=== PATIENT | male | born 1990 | race Caucasian/White ===

== ENCOUNTER → 2019-02-08 | Outpatient (CLI) | payer BC ==
--- NOTE | 2019-02-26 00:53 | ECWPNPC ---
PATIENT NAME: MAHSA MOSLEY : 1990 GENDER: MALE VISIT DATE: 02/08/2019 DISCHARGE DATE: 02/08/19 1639 VISIT LOCKED DATE TIME: PHYSICIAN: LLUVIA SKINNER MD RESOURCE: LLUVIA SKINNER MD REASON FOR APPOINTMENT 1. CHRONIC NECK PAIN HISTORY OF PRESENT ILLNESS PAIN SCREENING: PATIENT HAS A COMPLAINT OF ACUTE OR CHRONIC PAIN :YES 28 YEAR OLD MALE PATIENT WITH A HISTORY OF CHRONIC NECK PAIN. THE PATIENT DESCRIBES THE PAIN STABBING AND CONTINUOUS WITH A PAIN SCORE OF 7-10/10 DEPENDING ON PHYSICAL ACTIVITY. THE PATIENT SAYS HIS PAIN IS LOCATED IN HIS NECK AREA AND GOES INTO HIS LEFT SHOULDER AND SHOOTS DOWN HIS BACK. THE PATIENT SAYS THAT HIS PAIN STARTED ABOUT 4 YEARS AGO AFTER HE SUFFERED A TRAUMA OVER HIS NECK AND IT HAS WORSENED OVER TIME. THE PATIENT SAYS THAT HE OCCASIONALLY HAS NUMBNESS AND TINGLING DOWN HIS LEFT ARM. PATIENT DENIES UNEXPLAINABLE WEIGHT LOSS, FEVER, CHILLS, NEW CHANGES ON HIS URINARY OR BOWEL CONTROL. FALL RISK SCREENING: SCREENING :NO FALLS REPORTED IN THE LAST YEAR CURRENT MEDICATIONS TAKING NOVOLOG 100 UNIT/ML SOLUTION DIRECTED SUBCUTANEOUS PUMP; BASAL RATE 1.25UNITS/HER TAKING NOVOLOG 100 UNIT/ML SOLUTION DIRECTED SUBCUTANEOUS PUMP; 1 UNIT/20 CARBS EATEN TAKING LANTUS 100 UNIT/ML SOLUTION 35 UNITS NIGHTLY SUBCUTANEOUS NIGHTLY PRN TAKING OMEPRAZOLE 40 MG CAPSULE DELAYED RELEASE 1 CAPSULE ORALLY ONCE A DAY TAKING PROZAC 20 MG CAPSULE 1 CAPSULE ORALLY ONCE A DAY TAKING GABAPENTIN 600 MG TABLET 1 TABLET ORALLY BID TAKING TYLENOL 8 HOUR 650 MG TABLET EXTENDED RELEASE 500MG ORALLY TID TAKING MULTIVITAMIN ADULT - TABLET DIRECTED ORALLY TAKING MAGNESIUM 500 MG CAPSULE 2 CAPSULES AT BEDTIME NEEDED ORALLY ONCE A DAY MEDICATION LIST REVIEWED AND RECONCILED WITH THE PATIENT PAST MEDICAL HISTORY DIABETES TYPE I ACID REFLUX DEPRESSION CAUSED BY PAIN ASTHMA ALLERGIES PENICILLIN (FOR ALLERGIES USE ONLY): UNKNOWN - ALLERGY - CRITICALITY UNKNOWN - ONSET DATE 02/08/2019 SURGICAL HISTORY RIGHT TIBIA REPAIR 2017 FAMILY HISTORY FATHER: ALIVE MOTHER: ALIVE 2 BROTHER(S) , 1 SISTER(S) - HEALTHY. 1DAUGHTER(S) - HEALTHY. SOCIAL HISTORY GENERAL: TOBACCO USE ARE YOU A:NONSMOKER ALCOHOL SCREENING DID YOU HAVE A DRINK CONTAINING ALCOHOL IN THE PAST YEAR?YES HOW OFTEN DID YOU HAVE A DRINK CONTAINING ALCOHOL IN THE PAST YEAR?MONTHLY OR LESS (1 POINT) HOW MANY DRINKS DID YOU HAVE ON A TYPICAL DAY WHEN YOU WERE DRINKING IN THE PAST YEAR?1 OR 2 (0 POINTS) HOW OFTEN DID YOU HAVE SIX OR MORE DRINKS ON ONE OCCASION IN THE PAST YEAR?NEVER (0 POINTS) POINTS1 INTERPRETATIONNEGATIVE MORMONISM [id number] OTHER LANGUAGE LANGUAGES SPOKEN:MACEDONIAN EDUCATION LEVEL OF EDUCATION:HIGH SCHOOL LEARNING BARRIERS / SPECIAL NEEDS BARRIERS TO LEARNING?YES COMMENTS DIFFICULTY IN SPELLING HEARING IMPAIRED?NO VISION IMPAIRED?NO COGNITIVELY IMPAIRED?NO READINESS TO LEARN?YES LEARNING PREFERENCES?NO LEARNING CAPABILITIES PRESENT?YES EMOTIONAL BARRIERS?NO SPECIAL DEVICES?NO FIXED ROUTE OPERATOR NEEDED?NO PAIN CLINIC PFS, CLERGY, PUBLIC HEALTH REFERRALS HAS THE PATIENT BEEN EDUCATED REGARDING HIS/HER PLAN OF CARE?YES HAS THE PATIENT BEEN EDUCATED REGARDING PAIN, THE RISK FOR PAIN, THE IMPORTANCE OF EFFECTIVE PAIN MANAGEMENT, AND THE PAIN ASSESSMENT PROCESS?YES ADVANCE DIRECTIVE ADVANCE DIRECTIVE DISCUSSED WITH PATIENT:YES DECLINED HOSPITALIZATION/MAJOR DIAGNOSTIC PROCEDURE SURGERY DIABETES REVIEW OF SYSTEMS REVIEWED BY: PROVIDER: LLUVIA SKINNER MD . CONSTITUTIONAL: ANY CHANGE IN YOUR MEDICAL CONDITION? NO . CHILLS NO . FEVER NO . INFECTION: DO YOU HAVE NEW INFECTIONS? NO . DO YOU HAVE HISTORY OF MRSA? NO . MUSCULOSKELETAL: ANY NEW PATTERNS OF PAIN OR NUMBNESS? NO . SYTEMIC LUPUS NO . GASTROENTEROLOGY: ANY NEW CHANGE IN BOWEL CONTROL? NO . BARRETTS ESOPHAGUS NO . CIRRHOSIS NO . HEPATITIS NO . LIVER FAILURE NO . ACID REFLUX YES, ON MEDS . UNEXPLAINED WEIGHT LOSS NO . GENITOURINARY: ANY NEW CHANGE IN BLADDER CONTROL? NO . IS THERE A CHANCE YOU COULD BE ? NO . HEMATOLOGY/LYMPH: DO YOU TAKE ANY BLOOD THINNERS? (FOR EXAMPLE- COUMADIN, PLAVIX, AGGRENOX, PLATEL, PRADAXA, OR XARELTO) NO . WHEN WAS YOUR LAST DOSE? DATE: TIME: . LOW PLATELET COUNT NO . SICKLE CELL DISEASE NO . VON WILLIEBRANDS NO . FACTOR V LEIDEN NO . THALLASEMIA NO . ANEMIA NO . EASY BRUISING NO . NEUROLOGY: HAVE YOU FALLEN IN THE PAST 12 MONTHS? NO . ANY NEW EXTREMITY NUMBNESS OR WEAKNESS? YES, LEFT ARM NUMBNESS X4 YEARS . HEAD INJURY NO . DEMENTIA NO . CEREBRAL PALSY NO . MULTIPLE SCLEROSIS NO . DIZZINESS NO . HEADACHE NO . STROKES NO . VERTIGO NO . CARDIOLOGY: DO YOU HAVE A PACEMAKER OR DEFIBRILLATOR? NO . ANGINA NO . HEART ATTACK NO . HEART SURGERY NO . CONGESTIVE HEART FAILURE/FLUID OVERLOAD NO . CHEST PAIN NO . HIGH BLOOD PRESSURE NO . IRREGULAR HEART BEAT NO . RESPIRATORY: HAVE YOU BEEN SICK IN THE PAST WEEK? NO . FEVER NO . FLU LIKE SYMPTOMS? NO . CPAP NO . BYPAP NO . ASTHMA YES . EMPHYSEMA NO . CHRONIC LUNG DISEASES NO . SHORTNESS OF BREATH ON EXERTION NO . COUGH NO . SNORING NO . INTEGUMENTARY: DO YOU HAVE ANY RASHES OR OPEN SORES? NO . ALLERGIC/IMMUNO: ARE YOU ALLERGIC TO IV DYE? NO . ANY NEW ALLERGIES? NO . PSYCHIATRIC: DO YOU HAVE THOUGHTS OF HURTING YOURSELF OR SOMEONE ELSE? NO . ARE YOU ABUSED, NEGLECTED, OR IN AN UNSAFE ENVIRONMENT? NO . ENDOCRINOLOGY: ARE YOU DIABETIC? YES, HAS INSULIN PUMP. SET AT BASAL RATE 1.25 UNITS/HOUR AND 1 UNIT/20 CARBS EATEN . THYROID DISORDER NO . OTHER: DO YOU NEED ANY PRESCRIPTIONS? NO . IF YES, PLEASE LIST: ____ . ANY NEW PROBLEMS WITH YOUR MEDICATIONS? NO . WHEN DID YOU LAST EAT? ____ . WHEN DID YOU LAST DRINK? ____ . WHAT DID YOU LAST DRINK? ____ . NAME OF PERSON DRIVING YOU HOME? ____ . DO YOU HAVE ANY OTHER QUESTIONS OR CONCERNS FLU VACCINE RECEIVED 01/29/19 . VITAL SIGNS WT 185.6 LBS, HT 68 IN, BMI 28.22 INDEX, BP 135/74 MM HG, RR 18 /MIN, TEMP 98.7 F, OXYGEN SAT % 95%, NA INITIALS SC 15:17, REVIEWED BY: CELESTE. EXAMINATION GENERAL EXAMINATION: PATIENT IS ALERT O X 3 AND COOPERATIVE. LUNGS CLEAR, TO AUSCULTATION. HEART: NO MURMURS OR GALLOPS; FACIAL CRANIAL NERVES ARE GROSSLY NORMAL. GOOD SYMMETRY OF FACIAL MUSCLE MOVEMENT. NORMAL VISUAL MILLER. PRESENCE OF TRIGGER POINTS AND BANDS OF TISSUE WITH RESTRICTION OF MOVEMENT OF THE NECK AND LEFT SHOULDER. ASSESSMENTS MYALGIA, OTHER SITE - M79.18 (PRIMARY) NECK PAIN - M54.2 OTHER CHRONIC PAIN - G89.29 PAIN IN LEFT SHOULDER - M25.512 TREATMENT MYALGIA, OTHER SITE CLINICAL NOTES: WE DISCUSSED SEVERAL ISSUES WITH MR. MOSLEY'S PAIN MANAGEMENT CASE. DUE TO THE TRIGGER POINTS, BANDS OF TISSUE, AND RESTRICTION OF MOVEMENT, I WOULD LIKE TO MOVE FORWARD WITH A TRIGGER POINT INJECTION OVER THE NECK AND SHOULDER AREAS AT THIS TIME. WE DISCUSSED THE BENEFITS, RISKS, AND ALTERNATIVES OF THE INJECTION AND THE PATIENT WOULD LIKE TO PROCEED. I WOULD ALSO LIKE TO GET COPIES OF THE PATIENT'S EMGS AND MRIS. THE PATIENT WILL FOLLOW UP IN 4 TO 5 WEEKS. INSTRUCTIONS WERE GIVEN, QUESTIONS WERE ANSWERED, PATIENT REPORTS UNDERSTANDING AND AGREES WITH THE PLAN. I, LEXII PADILLA, DOCUMENTED THE ABOVE INFORMATION ACTING A SCRIBE FOR DR. SKINNER. I HAVE REVIEWED THE ABOVE DOCUMENT, WRITTEN BY LEXII ZIEGLERIBAdelfo AND I VERIFY THAT IT IS ACCURATE. DEAR DR. SAMANIEGO:THANK YOU FOR YOUR KIND REFERRAL OF MR. MOSLEY. IF YOU WANT TO DISCUSS HIS CASE WITH ME PLEASE CALL ME AT THE PAIN CENTER AT [phone]. SINCERELY,LLUVIA SKINNER, [facility] . PREVENTIVE MEDICINE PAIN CLINIC TEACHING: PROCEDURE TEACHING REVIEWED THE PROCEDURE WITH THE PT HE WILL NOT EAT PRIOR AND WILL LOWER HIS INSULIN PUMP AND MONITOR HIS GLUCOSE. PROCEDURE CODES FA211 ESTABILISHED PATIENT [facility] FACILITY CHARGE G8427 CURRENT MEDS W/DOSAGES DOCUMENTED G8730 PAIN ASSESS POS TOOL F/U PLAN DOC DISPOSITION & COMMUNICATION FOLLOW UP 4 WEEKS ELECTRONICALLY SIGNED BY LLUVIA SKINNER MD, MD ON 02/25/2019 AT 07:39 PM EDT DISCLAIMER : THIS IS A VISIT SUMMARY EXTRACTED FROM THE [employer] CHART. IT IS NOT A COPY OF THE [employer] PROGRESS NOTE. ROSE
== END ==
LOC: M PAIN 14:30
PROVIDERS: ATTEND Anesthesiology
DX: M79.18 Myalgia, other site (principal); M54.2 Cervicalgia; G89.29 Other chronic pain; M25.512 Pain in left shoulder; E10.9 Type 1 diabetes mellitus without complications; K21.9 Gastro-esophageal reflux disease without esophagitis; F32.9 Major depressive disorder, single episode, unspecified; J45.909 Unspecified asthma, uncomplicated; Z79.4 Long term (current) use of insulin; Z79.899 Other long term (current) drug therapy; Z88.0 Allergy status to penicillin; Z96.41 Presence of insulin pump (external) (internal)

== ENCOUNTER → 2019-02-14 | Outpatient (CLI) | payer BC ==
[~2019-02-14] MED LIST: BUPIVACAINE HCL 0.25% 10 ML VIAL As Ordered ONE; BUPIVACAINE HCL 0.25% 30 ML VIAL As Ordered ONE; TRIAMCINOLONE ACETONIDE SUSP 40 MG/ML VIAL (J3301) As Ordered ONE; diazePAM 5 MG TAB As Ordered ONE; oxyCODONE 5MG TAB As Ordered ONE
--- NOTE | 2019-02-27 00:26 | ECWPNPC ---
PATIENT NAME: MAHSA MOSLEY : 1990 GENDER: MALE VISIT DATE: 02/14/2019 DISCHARGE DATE: 02/14/19 1126 VISIT LOCKED DATE TIME: PHYSICIAN: LLUVIA SKINNER MD RESOURCE: LLUVIA SKINNER MD REASON FOR APPOINTMENT 1. TPI HISTORY OF PRESENT ILLNESS HISTORY OF PRESENT ILLNESS: PAIN THE PATIENT DESCRIBES THE PAIN... FALL RISK SCREENING: SCREENING :NO FALLS REPORTED IN THE LAST YEAR CURRENT MEDICATIONS TAKING NOVOLOG 100 UNIT/ML SOLUTION DIRECTED SUBCUTANEOUS PUMP; BASAL RATE 1.25UNITS/HER TAKING NOVOLOG 100 UNIT/ML SOLUTION DIRECTED SUBCUTANEOUS PUMP; 1 UNIT/20 CARBS EATEN TAKING LANTUS 100 UNIT/ML SOLUTION 35 UNITS NIGHTLY SUBCUTANEOUS NIGHTLY PRN TAKING OMEPRAZOLE 40 MG CAPSULE DELAYED RELEASE 1 CAPSULE ORALLY ONCE A DAY, NOTES: 02/13/19 AM TAKING PROZAC 20 MG CAPSULE 1 CAPSULE ORALLY ONCE A DAY, NOTES: 02/13/19 TAKING GABAPENTIN 600 MG TABLET 1 TABLET ORALLY BID, NOTES: 02/13/19 TAKING TYLENOL 8 HOUR 650 MG TABLET EXTENDED RELEASE 500MG ORALLY TID, NOTES: 02/14/19 0100 TAKING MULTIVITAMIN ADULT - TABLET DIRECTED ORALLY , NOTES: 02/13/19 AM TAKING MAGNESIUM 500 MG CAPSULE 2 CAPSULES ORALLY ONCE A DAY, NOTES: 02/13/19 PM MEDICATION LIST REVIEWED AND RECONCILED WITH THE PATIENT PAST MEDICAL HISTORY DIABETES TYPE I ACID REFLUX DEPRESSION CAUSED BY PAIN ASTHMA ALLERGIES PENICILLIN (FOR ALLERGIES USE ONLY): UNKNOWN - ALLERGY - CRITICALITY UNKNOWN - ONSET DATE 02/08/2019 SURGICAL HISTORY RIGHT TIBIA REPAIR 2016 FAMILY HISTORY FATHER: ALIVE, DIAGNOSED WITH HYPERTENSION MOTHER: ALIVE 2 BROTHER(S) , 1 SISTER(S) - HEALTHY. 1DAUGHTER(S) - HEALTHY. SOCIAL HISTORY GENERAL: TOBACCO USE ARE YOU A:NONSMOKER LATEX QUESTIONNAIRE LATEX ALLERGY : HAVE YOU EVER DEVELOPED ANY TYPE OF REACTION AFTER HANDLING LATEX PRODUCTS SUCH RUBBER GLOVES, CONDOMS, DIAPHRAGMS, BALLOONS, SOCKS, OR UNDERWEAR?NO LATEX ALLERGY : HAVE YOU EVER DEVELOPED ANY TYPE OF REACTION DURING OR AFTER DENTAL APPOINTMENT, VAGINAL/RECTAL EXAMINATION, SURGICAL PROCEDURE, OR ANY OTHER EXPOSURE?NO LATEX RISK : HAVE YOU EVER HAD ANY DIFFICULTY BREATHING OR HIVES AFTER EATING OR HANDLING ANY FRUITS, OR VEGETABLES; SUCH KIWI, BANANAS, STONE FRUITS, OR CHESTNUTSNO LATEX RISK : DO YOU HAVE A PREVIOUS PERSONAL HISTORY OF MORE THAN NINE SURGERIES, SPINA BIFIDA, OR REPEATED CATHERTIZATIONS? NO LATEX RISK : ARE YOU FREQUENTLY EXPOSED TO LATEX PRODUCTS IN YOUR OCCUPATION?NO DATE ASKED : 02/14/2019 LUNG CANCER SCREENING SMOKING STATUS:NON SMOKER ALCOHOL SCREENING DID YOU HAVE A DRINK CONTAINING ALCOHOL IN THE PAST YEAR?YES HOW OFTEN DID YOU HAVE A DRINK CONTAINING ALCOHOL IN THE PAST YEAR?MONTHLY OR LESS (1 POINT) HOW MANY DRINKS DID YOU HAVE ON A TYPICAL DAY WHEN YOU WERE DRINKING IN THE PAST YEAR?1 OR 2 (0 POINTS) HOW OFTEN DID YOU HAVE SIX OR MORE DRINKS ON ONE OCCASION IN THE PAST YEAR?NEVER (0 POINTS) POINTS1 INTERPRETATIONNEGATIVE RECREATIONAL DRUG USE DRUG USE?NO GNOSTICISM [id number] OTHER LANGUAGE LANGUAGES SPOKEN:UPPER SORBIAN EDUCATION LEVEL OF EDUCATION:HIGH SCHOOL LEARNING BARRIERS / SPECIAL NEEDS BARRIERS TO LEARNING?YES COMMENTS DIFFICULTY IN SPELLING HEARING IMPAIRED?NO VISION IMPAIRED?NO COGNITIVELY IMPAIRED?NO READINESS TO LEARN?YES LEARNING PREFERENCES?NO LEARNING CAPABILITIES PRESENT?YES EMOTIONAL BARRIERS?NO SPECIAL DEVICES?NO POWER SYSTEM DISPATCHER NEEDED?NO PAIN CLINIC PFS, CLERGY, PUBLIC HEALTH REFERRALS HAS THE PATIENT BEEN EDUCATED REGARDING HIS/HER PLAN OF CARE?YES HAS THE PATIENT BEEN EDUCATED REGARDING PAIN, THE RISK FOR PAIN, THE IMPORTANCE OF EFFECTIVE PAIN MANAGEMENT, AND THE PAIN ASSESSMENT PROCESS?YES ADVANCE DIRECTIVE ADVANCE DIRECTIVE DISCUSSED WITH PATIENT:YES DECLINED INFO AND ASSISTANCE AT THIS TIME 02/14/19 REVIEWED WITH PT 02/14/19 0952 BV. HOSPITALIZATION/MAJOR DIAGNOSTIC PROCEDURE SURGERY DIABETES REVIEW OF SYSTEMS REVIEWED BY: PROVIDER: . CONSTITUTIONAL: ANY CHANGE IN YOUR MEDICAL CONDITION? NO . CHILLS NO . FEVER NO . INFECTION: DO YOU HAVE NEW INFECTIONS? NO . DO YOU HAVE HISTORY OF MRSA? NO . MUSCULOSKELETAL: ANY NEW PATTERNS OF PAIN OR NUMBNESS? NO . GASTROENTEROLOGY: ANY NEW CHANGE IN BOWEL CONTROL? NO . GENITOURINARY: ANY NEW CHANGE IN BLADDER CONTROL? NO . IS THERE A CHANCE YOU COULD BE ? NO . HEMATOLOGY/LYMPH: DO YOU TAKE ANY BLOOD THINNERS? (FOR EXAMPLE- COUMADIN, PLAVIX, AGGRENOX, PLATEL, PRADAXA, OR XARELTO) NO . WHEN WAS YOUR LAST DOSE? DATE: TIME: . NEUROLOGY: HAVE YOU FALLEN IN THE PAST 12 MONTHS? NO . ANY NEW EXTREMITY NUMBNESS OR WEAKNESS? NO . CARDIOLOGY: DO YOU HAVE A PACEMAKER OR DEFIBRILLATOR? NO . RESPIRATORY: HAVE YOU BEEN SICK IN THE PAST WEEK? NO . FEVER NO . FLU LIKE SYMPTOMS? NO . COUGH NO . INTEGUMENTARY: DO YOU HAVE ANY RASHES OR OPEN SORES? NO . ALLERGIC/IMMUNO: ARE YOU ALLERGIC TO IV DYE? NO . ANY NEW ALLERGIES? NO . PSYCHIATRIC: DO YOU HAVE THOUGHTS OF HURTING YOURSELF OR SOMEONE ELSE? NO . ARE YOU ABUSED, NEGLECTED, OR IN AN UNSAFE ENVIRONMENT? NO . ENDOCRINOLOGY: ARE YOU DIABETIC? YES, ON INSULIN PUMP FSBS WAS 110 AT 940 . OTHER: DO YOU NEED ANY PRESCRIPTIONS? NO . IF YES, PLEASE LIST: ____ . ANY NEW PROBLEMS WITH YOUR MEDICATIONS? NO . WHEN DID YOU LAST EAT? ____ . WHEN DID YOU LAST DRINK? 02/14/19 WATER 0700 . WHAT DID YOU LAST DRINK? WATER . NAME OF PERSON DRIVING YOU HOME? TERRELL . DO YOU HAVE ANY OTHER QUESTIONS OR CONCERNS NO . VITAL SIGNS WT 179 LBS, HT 68 IN, BMI 27.21 INDEX, BP 148/91 MM HG, HR 99 /MIN, RR 18 /MIN, TEMP 98.0 F, OXYGEN SAT % 98%, NA INITIALS AW 0945, REVIEWED BY: BV. ASSESSMENTS MYALGIA, OTHER SITE - M79.18 (PRIMARY) PROCEDURES PN TRIGGER POINT INJECTION WITH STEROIDS PRE PROCEDURE DIAGNOSIS 1. MYALGIA 2. PAIN AT LEFT NECK AREA AND LEFT THORACIC AREA. POST PROCEDURE DIAGNOSIS 1. MYALGIA 2. PAIN AT LEFT NECK AREA AND LEFT THORACIC AREA. PROCEDURE TRIGGER POINT INJECTION AT LEFT NECK AREA AND LEFT THORACIC AREA. SURGEON DR. LLUVIA SKINNER HEAD OF DIGITAL NONE ANESTHESIA LOCAL PRE PROCEDURE NOTE THE PATIENT HAS A HISTORY OF CHRONIC PAIN AT THE LEFT NECK AREA AND LEFT THORACIC AREA. I EVALUATED THE PATIENT AND REVIEWED THE CHART. THERE IS EVIDENCE OF BANDS OF TISSUE WITH RESTRICTION OF MOVEMENT AND PRESENCE OF TRIGGER POINT AT THE AFFECTED AREA. I WENT OVER THE RISKS, ALTERNATIVES, AND BENEFITS ASSOCIATED WITH THIS PROCEDURE. THE PATIENT WOULD LIKE TO PROCEED AND GAVE CONSENT TO PERFORM THE PROCEDURE. THE PATIENT DENIES UNEXPLAINABLE WEIGHT LOSS, FEVER, CHILLS, OR NEW CHANGES IN URINARY OR BOWEL CONTROL DESCRIPTION OF PROCEDURE THE PATIENT WAS BROUGHT TO THE PROCEDURE ROOM AND PLACED IN THE SITTING POSITION. THE AREA WAS CLEANED WITH ALCOHOL. THE PROCEDURE WAS DONE USING ASEPTIC STERILE TECHNIQUE. I CHECKED LATERALITY AND THE LEVEL WHERE THE PROCEDURE WAS GOING TO BE PERFORMED WITH THE PATIENT AND THE SUPPORTING STAFF AT THE MOMENT OF THE TIME OUT IN THE PROCEDURE ROOM. USING A 25-GAUGE NEEDLE, TRIGGER POINTS WERE INJECTED AT THE LEFT NECK AREA AND LEFT THORACIC AREA WITH A TOTAL OF 40 ML OF BUPIVACAINE 0.25% AND KENALOG 40 MG. THERE WAS NO EVIDENCE OF BLOOD, PARESTHESIA OR CEREBROSPINAL FLUID DURING THE PROCEDURE. THE PATIENT WAS SENT TO THE RECOVERY ROOM. THE PATIENT WAS MOVING THE EXTREMITIES AND DOING WELL. THERE WAS NO COMPLICATION DURING THE PROCEDURE POST PROCEDURE NOTE THE PATIENT WILL BE SEEN IN A FOLLOW UP IN THE NEXT FEW WEEKS. INSTRUCTIONS WERE GIVEN, QUESTIONS WERE ANSWERED, AND THE PATIENT EXPRESSED UNDERSTANDING AND AGREES WITH THE PLAN. I, LYN MCKEON, DOCUMENTED THE ABOVE INFORMATION ACTING A SCRIBE FOR DR. SKINNER. I HAVE REVIEWED THE ABOVE DOCUMENT, WRITTEN BY LYN MCKEON SCRIBAdelfo AND I VERIFY THAT IT IS ACCURATE. PROCEDURE CODES 78219 INJ TRIGGER POINT /2 MUSC DISPOSITION & COMMUNICATION FOLLOW UP 3 WEEKS ELECTRONICALLY SIGNED BY LLUVIA SKINNER MD, MD ON 02/26/2019 AT 02:46 PM EDT DISCLAIMER : THIS IS A VISIT SUMMARY EXTRACTED FROM THE [employer] CHART. IT IS NOT A COPY OF THE [employer] PROGRESS NOTE. ROSE
== END ==
LOC: M PAIN 09:30
PROVIDERS: ATTEND Anesthesiology
DX: M79.18 Myalgia, other site (principal); E10.9 Type 1 diabetes mellitus without complications; K21.9 Gastro-esophageal reflux disease without esophagitis; F32.9 Major depressive disorder, single episode, unspecified; J45.909 Unspecified asthma, uncomplicated; Z79.4 Long term (current) use of insulin; Z79.899 Other long term (current) drug therapy; Z88.0 Allergy status to penicillin
CPT/HCPCS: 20552; J3301

== ENCOUNTER → 2019-06-08 | Outpatient (CLI) | payer BC ==
--- NOTE | 2019-06-11 23:29 | ECWPNPC ---
PATIENT NAME: MAHSA MOSLEY : 1990 GENDER: MALE VISIT DATE: 06/08/2019 DISCHARGE DATE: 06/08/19 1507 VISIT LOCKED DATE TIME: PHYSICIAN: DANIA ABBOTT RESOURCE: DANIA ABBOTT REASON FOR APPOINTMENT 1. POST TPI HISTORY OF PRESENT ILLNESS HISTORY OF PRESENT ILLNESS: PAIN THE PATIENT DESCRIBES THE PAIN... 29 YEAR OLD MALE IN FOR POST TPI FOLLOW UP. HE FEELS THE TPI WORKED FOR ABOUT A WEEK BUT THEN HIS PAIN RETURNED AND HAS INCREASED SINCE THEN. HE RATES HIS PAIN AT AN 8/10 AND DESCRIBES IT ACHING, STABBING, SORE, AND SHOOTING. FALL RISK SCREENING: SCREENING :NO FALLS REPORTED IN THE LAST YEAR CURRENT MEDICATIONS TAKING NOVOLOG 100 UNIT/ML SOLUTION DIRECTED SUBCUTANEOUS PUMP; BASAL RATE 1.25UNITS/HER TAKING NOVOLOG 100 UNIT/ML SOLUTION DIRECTED SUBCUTANEOUS PUMP; 1 UNIT/20 CARBS EATEN TAKING LANTUS 100 UNIT/ML SOLUTION 35 UNITS NIGHTLY SUBCUTANEOUS NIGHTLY PRN TAKING OMEPRAZOLE 40 MG CAPSULE DELAYED RELEASE 1 CAPSULE ORALLY ONCE A DAY TAKING PROZAC 20 MG CAPSULE 1 CAPSULE ORALLY ONCE A DAY TAKING GABAPENTIN 600 MG TABLET 1 TABLET ORALLY TID TAKING TYLENOL 8 HOUR 650 MG TABLET EXTENDED RELEASE 500MG ORALLY TID TAKING MULTIVITAMIN ADULT - TABLET DIRECTED ORALLY TAKING MAGNESIUM 500 MG CAPSULE 2 CAPSULES ORALLY ONCE A DAY MEDICATION LIST REVIEWED AND RECONCILED WITH THE PATIENT PAST MEDICAL HISTORY DIABETES TYPE I ACID REFLUX DEPRESSION CAUSED BY PAIN ASTHMA ALLERGIES PENICILLIN (FOR ALLERGIES USE ONLY): UNKNOWN - ALLERGY - CRITICALITY UNKNOWN - ONSET DATE 02/08/2019 SURGICAL HISTORY RIGHT TIBIA REPAIR 2016 FAMILY HISTORY FATHER: ALIVE, DIAGNOSED WITH HYPERTENSION MOTHER: ALIVE 2 BROTHER(S) , 1 SISTER(S) - HEALTHY. 1DAUGHTER(S) - HEALTHY. SOCIAL HISTORY GENERAL: TOBACCO USE ARE YOU A:NONSMOKER LUNG CANCER SCREENING SMOKING STATUS:NON SMOKER PAIN CLINIC PFS, CLERGY, PUBLIC HEALTH REFERRALS HAS THE PATIENT BEEN EDUCATED REGARDING HIS/HER PLAN OF CARE?YES HAS THE PATIENT BEEN EDUCATED REGARDING PAIN, THE RISK FOR PAIN, THE IMPORTANCE OF EFFECTIVE PAIN MANAGEMENT, AND THE PAIN ASSESSMENT PROCESS?YES LATEX QUESTIONNAIRE LATEX ALLERGY : HAVE YOU EVER DEVELOPED ANY TYPE OF REACTION AFTER HANDLING LATEX PRODUCTS SUCH RUBBER GLOVES, CONDOMS, DIAPHRAGMS, BALLOONS, SOCKS, OR UNDERWEAR?NO LATEX ALLERGY : HAVE YOU EVER DEVELOPED ANY TYPE OF REACTION DURING OR AFTER DENTAL APPOINTMENT, VAGINAL/RECTAL EXAMINATION, SURGICAL PROCEDURE, OR ANY OTHER EXPOSURE?NO LATEX RISK : HAVE YOU EVER HAD ANY DIFFICULTY BREATHING OR HIVES AFTER EATING OR HANDLING ANY FRUITS, OR VEGETABLES; SUCH KIWI, BANANAS, STONE FRUITS, OR CHESTNUTSNO LATEX RISK : DO YOU HAVE A PREVIOUS PERSONAL HISTORY OF MORE THAN NINE SURGERIES, SPINA BIFIDA, OR REPEATED CATHERIZATIONS? NO LATEX RISK : ARE YOU FREQUENTLY EXPOSED TO LATEX PRODUCTS IN YOUR OCCUPATION?NO DATE ASKED : 02/14/2019 ADVANCE DIRECTIVE ADVANCE DIRECTIVE DISCUSSED WITH PATIENT:YES DECLINED INFO AND ASSISTANCE AT THIS TIME 02/14/19 EDUCATION LEVEL OF EDUCATION:HIGH SCHOOL RESTORATIONIST [id number] OTHER LANGUAGE LANGUAGES SPOKEN:HEBREW ALCOHOL SCREENING DID YOU HAVE A DRINK CONTAINING ALCOHOL IN THE PAST YEAR?YES HOW OFTEN DID YOU HAVE A DRINK CONTAINING ALCOHOL IN THE PAST YEAR?MONTHLY OR LESS (1 POINT) HOW MANY DRINKS DID YOU HAVE ON A TYPICAL DAY WHEN YOU WERE DRINKING IN THE PAST YEAR?1 OR 2 (0 POINTS) HOW OFTEN DID YOU HAVE SIX OR MORE DRINKS ON ONE OCCASION IN THE PAST YEAR?NEVER (0 POINTS) POINTS1 INTERPRETATIONNEGATIVE RECREATIONAL DRUG USE DRUG USE?NO LEARNING BARRIERS / SPECIAL NEEDS BARRIERS TO LEARNING?YES COMMENTS DIFFICULTY IN SPELLING HEARING IMPAIRED?NO VISION IMPAIRED?NO COGNITIVELY IMPAIRED?NO READINESS TO LEARN?YES LEARNING PREFERENCES?NO LEARNING CAPABILITIES PRESENT?YES EMOTIONAL BARRIERS?NO SPECIAL DEVICES?NO REJECTED ITEMS CLERK NEEDED?NO REVIEWED WITH PT 02/14/19 3473 BVREVIEWED WITH PATIENT 06/08/19 2258 NLJ. HOSPITALIZATION/MAJOR DIAGNOSTIC PROCEDURE SURGERY DIABETES REVIEW OF SYSTEMS REVIEWED BY: PROVIDER: AYDIN BAR . CONSTITUTIONAL: ANY CHANGE IN YOUR MEDICAL CONDITION? NO . CHILLS NO . FEVER NO . INFECTION: DO YOU HAVE NEW INFECTIONS? NO . DO YOU HAVE HISTORY OF MRSA? NO . MUSCULOSKELETAL: ANY NEW PATTERNS OF PAIN OR NUMBNESS? YES- PAIN WAS RELIEVED FOR ABOUT 5 DAYS TO WEEK, PAIN PROGRESSED AND IS NOW A 8-10 ALL THE TIME . GASTROENTEROLOGY: ANY NEW CHANGE IN BOWEL CONTROL? NO . GENITOURINARY: ANY NEW CHANGE IN BLADDER CONTROL? NO . IS THERE A CHANCE YOU COULD BE ? NO . HEMATOLOGY/LYMPH: DO YOU TAKE ANY BLOOD THINNERS? (FOR EXAMPLE- COUMADIN, PLAVIX, AGGRENOX, PLATEL, PRADAXA, OR XARELTO) NO . WHEN WAS YOUR LAST DOSE? DATE: TIME: . NEUROLOGY: HAVE YOU FALLEN IN THE PAST 12 MONTHS? NO . ANY NEW EXTREMITY NUMBNESS OR WEAKNESS? NO . CARDIOLOGY: DO YOU HAVE A PACEMAKER OR DEFIBRILLATOR? NO . RESPIRATORY: HAVE YOU BEEN SICK IN THE PAST WEEK? NO . FEVER NO . FLU LIKE SYMPTOMS? NO . COUGH NO . INTEGUMENTARY: DO YOU HAVE ANY RASHES OR OPEN SORES? NO . ALLERGIC/IMMUNO: ARE YOU ALLERGIC TO IV DYE? NO . ANY NEW ALLERGIES? NO . PSYCHIATRIC: DO YOU HAVE THOUGHTS OF HURTING YOURSELF OR SOMEONE ELSE? NO . ARE YOU ABUSED, NEGLECTED, OR IN AN UNSAFE ENVIRONMENT? NO . ENDOCRINOLOGY: ARE YOU DIABETIC? YES- HAS INSULIN PUMP . OTHER: DO YOU NEED ANY PRESCRIPTIONS? YES- WE DO NOT PERSCRIBE ANY OF HIS MEDS, BUT WANTS TO TRY EITHER MORE INJECTIONS OR MEDS . IF YES, PLEASE LIST: ____ . ANY NEW PROBLEMS WITH YOUR MEDICATIONS? YES- STATES DREW DRIES HIS MOUTH OUT . WHEN DID YOU LAST EAT? ____ . WHEN DID YOU LAST DRINK? ____ . WHAT DID YOU LAST DRINK? ____ . NAME OF PERSON DRIVING YOU HOME? ____ . DO YOU HAVE ANY OTHER QUESTIONS OR CONCERNS YES- PATIENT STATES TPI WORKED FOR ABOUT A WEEK AND PAIN HAS PROGRESSINGLY GOT WORSE. STATES PAIN IN HIS LEFT SHOULDER IS THE WORST. STATES DREW DRIES HIS MOUTH OUT. STATES HE IS WILLING TO TRY MORE INJECTIONS, AND WOULD LIKE TO DISCUSS MED OPTIONS . VITAL SIGNS WT 169 LBS, HT 68 IN, BMI 25.69 INDEX, BP 127/83 MM HG, HR 74 /MIN, RR 18 /MIN, TEMP 97.7 F, OXYGEN SAT % 100%, SAFE IN ENV? (Y/N) YES, NA INITIALS [place] 13:50, REVIEWED BY: ADE. EXAMINATION GENERAL EXAMINATION: GENERALNO ACUTE DISTRESS, WELL NOURISHED AND HYDRATED. PSYCHAPPROPRIATE MOOD AND AFFECT . NECK:POINT TENDER ALONG NECK AND ACROSS LEFT TRAPEZIUS, SURROUNDING SKIN SHOWS NO ERYTHEMA, ECCHYMOSIS, INCREASED WARMTH, AND/OR SKIN ERUPTIONS. . LUNGS:CLEAR TO AUSCULTATION BILATERALLY, NO WHEEZES, RHONCHI, RALES. HEART:NO MURMURS, REGULAR RATE AND RHYTHM. ASSESSMENTS MYALGIA, OTHER SITE - M79.18 (PRIMARY) PAIN IN LEFT SHOULDER - M25.512 TREATMENT MYALGIA, OTHER SITE START BACLOFEN TABLET, 10 MG, 1/2 TABLET TID X 5 DAYS THEN GO TO 1 TABLET WITH FOOD OR MILK, ORALLY, THREE TIMES A DAY, 30 DAY(S), 30 START TENS UNIT, -, INTER FERENTIAL TENS UNIT DIRECTED NOTES: TPI BILATERAL NECK AND LEFT SHOULDER. CLINICAL NOTES: 29 YEAR OLD MALE IN FOR TPI FOLLOW UP. GIVEN PRESENTING SYMPTOMS AND RESULTS OF PHYSICAL EXAMINATION RECOMMENDED TENS UNIT, STARTING BACLOFEN, AND A REPEAT TPI WITH POST PROCEDURAL FOLLOW UP. PATIENT HAS EXPRESSED UNDERSTANDING OF AND WAS IN AGREEMENT WITH TREATMENT PLAN. GIVEN TIME TO ASK QUESTIONS AND EXPRESS CONCERNS., ISTOP REGISTRY REVIEWED AND DEMONSTRATES COMPLLIANCE. (REF # [id number] ) BRINGS IN MEDICATIONS WHICH IS APPROPRIATE FOR WHAT WAS DISPENSED. RECENT URINE TOXICOLOGY REVIEWED. NO UNAUTHORIZED MEDICATIONS. NO ILLICIT SUBSTANCES AND PRESCRIBED MEDICATIONS WERE PRESENT. PREVENTIVE MEDICINE PAIN CLINIC TEACHING: MEDICATIONS BACLOFEN INFORMATION HANDOUT PRINTED AND GIVEN TO PATIENT 06/08/19 1445 NLJ. PROCEDURE TEACHING PATIENT DECLINED TRIGGER POINT INJECTION HANDOUT, PATEINT VERBALIZES UNDERSTANDING OF PROCEDURE 06/08/19 1445 TENS UNIT INFORMATION PRINTED AND REVIEWED WITH PATIENT 06/08/19 1445 NLJ. PROCEDURE CODES FA211 ESTABILISHED PATIENT [facility] CHARGE DISPOSITION & COMMUNICATION FOLLOW UP POST PROCEDURE (REASON: TPI BILATERAL NECK AND LEFT SHOULDER ) ELECTRONICALLY SIGNED BY WERNER CARCAMO ON 06/11/2019 AT 02:00 PM EDT DISCLAIMER : THIS IS A VISIT SUMMARY EXTRACTED FROM THE [employer] CHART. IT IS NOT A COPY OF THE [employer] PROGRESS NOTE. ROSE
== END ==
LOC: M PAIN 13:30
PROVIDERS: ATTEND Family Medicine
DX: M79.18 Myalgia, other site (principal); M25.512 Pain in left shoulder; E10.9 Type 1 diabetes mellitus without complications; K21.9 Gastro-esophageal reflux disease without esophagitis; Z86.59 Personal history of other mental and behavioral disorders; J45.909 Unspecified asthma, uncomplicated; Z88.0 Allergy status to penicillin; Z79.4 Long term (current) use of insulin; Z79.899 Other long term (current) drug therapy

== ENCOUNTER → 2021-04-11 | Outpatient (CLI) | payer OTHER ==
--- NOTE | 2021-04-11 09:19 | REP ---
INDICATION: LT SHOULDER PAIN JOINT,PAIN IN LEFT SHOULDER/ LABS AFTER. COMPARISON: None. TECHNIQUE: Axial, oblique coronal, and oblique sagittal imaging planes utilized for T1 and T2 weighted scans obtained with without fat saturation in the usual fashion. FINDINGS: There are small subcortical cysts in the humeral head. Cortical and medullary bone signal intensity are otherwise normal. Glenohumeral and acromioclavicular joints are normally aligned. Biceps tendon is normal in position and appearance. There is some heterogeneous signal intensity and slight thickening in the subscapularis tendon consistent with tendinitis tendinosis change. The infraspinatus and the supraspinatus tendons are unremarkable. No anabella cuff tendon tear is seen. The superior labral cartilage appears intact. There is no evidence to suggest anterior or posterior labral cartilage tear. No focal articular cartilage defect is seen. There is no evidence of joint effusion or bursal effusion. No juxta-articular cyst or mass is seen. IMPRESSION: Findings consistent with subscapularis tendinitis tendinosis change. Otherwise negative. <Electronically signed by Uvaldo Esquivel > 04/11/21 [id number]
[2021-04-11 09:46] LABS: CREATININE FOR GFR 0.85 MG/DL (0.70-1.30); GLOMERULAR FILTRATION RATE > 60.0 (>60)
== END ==
LOC: M LAB 08:08 → M RAD 08:08
PROVIDERS: ATTEND Nurse Practitioner Family
DX: M75.32 Calcific tendinitis of left shoulder (principal)

== ENCOUNTER → 2021-04-15 | Outpatient (CLI) | payer OTHER ==
--- NOTE | 2021-04-16 17:58 | REPVR ---
PROCEDURE INFORMATION: Exam: MR Cervical Spine Without and With Contrast Exam date and time: 04/15/2021 4:59 PM Age: 30 years old Clinical indication: Condition or disease; Other: Postlaminectomy syndrome, not elsewhere classified; Prior surgery; Surgery date: 6+ months TECHNIQUE: Imaging protocol: Multiplanar magnetic resonance images of the cervical spine without and with contrast. Contrast material: PROHANCE; Contrast volume: 16 ml; Contrast route: INTRAVENOUS (IV); COMPARISON: No relevant prior studies available. FINDINGS: Vertebrae: See "Discs/Spinal canal/Neural foramina" finding. Spinal cord: No abnormal signal is seen in the cervical spinal cord above and below the level effusion however the cord at the level of fusion is obscured by artifact. Discs/Spinal canal/Neural foramina: Anterior cervical fusion hardware is seen at the C5-C6 level. There appears to be mild reversal the normal cervical lordosis centered at the fusion level. On the T2 weighted axial images the neural foramen appear patent at the C5-C6 level there does not appear to be spinal canal stenosis. Series 6, images 15-17. There is no spinal canal stenosis or neural foraminal narrowing in the remainder of the cervical spine. Vasculature: Expected flow voids in the vertebral arteries. Soft tissues: No abnormal contrast enhancement. IMPRESSION: No spinal canal stenosis or neural foraminal narrowing in the cervical spine. No abnormal contrast enhancement. Electronically signed by: Laura Taylor On 04/16/2021 17:57:57 PM
== END ==
LOC: M RAD 03-23 16:25
PROVIDERS: ATTEND Nurse Practitioner Family
DX: M96.1 Postlaminectomy syndrome, not elsewhere classified (principal)